=== PATIENT | male | born 1990 | race Caucasian/White ===

== ENCOUNTER → 2016-09-18 | Outpatient (CLI) | payer OTHER ==
[~2016-09-18] MED LIST: BUPIVACAINE HCL 0.25% 30 ML VIAL As Ordered ONE; ISOVUE-M 300 61% 15ML VIAL (Q9967) As Ordered ONE; LIDOCAINE 1% SDV INJ 30 ML VIAL As Ordered ONE; TRIAMCINOLONE ACETONIDE SUSP 40 MG/ML VIAL (J3301) As Ordered ONE; diazePAM 5 MG TAB As Ordered ONE; oxyCODONE 5MG TAB As Ordered ONE
--- NOTE | 2016-09-18 13:11 | REP ---
Chest two views HISTORY: Pneumothorax Comparison: None The lungs are clear. The heart is normal in size. The pulmonary vasculature is normal in appearance. The bony structure is intact. IMPRESSION: No acute disease. Signed by Amos Garcia MD 09/18/2016 01:04 P
--- NOTE | 2016-09-18 15:02 | REP ---
Partial thoracic spine series: Three views. History: Bilateral thoracic facet injections for pain. 16 seconds of fluoroscopy time is reported. Findings: A sequence of three fluoroscopically obtained intraprocedural spot radiographs of the lower thoracic spine document needle position and contrast injection for injection procedure. Signed by Kenji Valentin MD 09/18/2016 03:10 P
--- NOTE | 2016-09-25 00:01 | ECWPNPC ---
PATIENT NAME: CARIDAD ALFARO : 1990 GENDER: MALE VISIT DATE: 09/18/2016 DISCHARGE DATE: 09/18/16 1337 VISIT LOCKED DATE TIME: PHYSICIAN: CHRISTIN EMANUEL RESOURCE: CHRISTIN EMANUEL REASON FOR APPOINTMENT 1. THORACIC FACET CURRENT MEDICATIONS TAKING TRAMADOL HCL 50 MG TABLET 1 TABLET NEEDED ORALLY EVERY 6 HRS PRN MDD4, NOTES: 09-16-16 DISCONTINUED SOMA 350 MG TABLET 1 TABLET NEEDED ORALLY 1 PO AT HS PRN PAIN MDD1, NOTES: 08/11/16 DISCONTINUED TIZANIDINE HCL 4 MG TABLET 1 TAB ORALLY 3 TIMES A DAY NEEDED, NOTES: 08/10/16 DISCONTINUED CELEBREX 200 MG CAPSULE 1 CAPSULE ORALLY ONCE A DAY FOR PAIN, NOTES: NONE LATELY DISCONTINUED SKELAXIN 800 MG TABLET 1 TABLET ORALLY BEFORE BEDTIME FOR SPASMS AND PAIN MEDICATION LIST REVIEWED AND RECONCILED WITH THE PATIENT PAST MEDICAL HISTORY LEFT EYE CORNEAL FOREIGN BODY HOT SPARK INJURY 2013 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 VITAL SIGNS WT 235 LBS, HT 74", BMI 30.17 INDEX, BP 147/83 MM HG, HR 82 /MIN, RR 16 /MIN, TEMP 96.9 F, OXYGEN SAT % 99, NA INITIALS TL 1019, REVIEWED BY: CM. ASSESSMENTS SPONDYLOSIS WITHOUT MYELOPATHY OR RADICULOPATHY, THORACIC REGION - M47.814 (PRIMARY) PROCEDURES PN THORACIC FACET BLOCK THERAPEUTIC PRE PROCEDURE DIAGNOSIS THORACIC SPONDYLOSIS , THORACIC FACET ARTHROPATHY POST PROCEDURE DIAGNOSIS THORACIC SPONDYLOSIS, THORACIC FACET ARTHROPATHY PROCEDURE BILATERAL T8-T9, AND BILATERAL T9-T10 FACET BLOCK THERAPEUTIC SURGEON DR. CHRISTIN EMANUEL PROCESSING TECHNOLOGIST NONE ANESTHESIA LOCAL PRE PROCEDURE NOTE THE PATIENT WITH HISTORY OF CHRONIC THORACIC PAIN. I EVALUATED THE PATIENT AND REVIEWED THE CHART. I WENT OVER THE RISKS, ALTERNATIVES, AND BENEFITS ASSOCIATED WITH THIS PROCEDURE. THE PATIENT WOULD LIKE TO PROCEED AND GAVE CONSENT TO PERFORM THE PROCEDURE. THE PATIENT DENIES UNEXPLAINABLE WEIGHT LOSS, FEVER, CHILLS, OR NEW CHANGES IN URINARY OR BOWEL CONTROL. DESCRIPTION OF PROCEDURE THE PATIENT WAS BROUGHT TO THE PROCEDURE ROOM AND PLACED IN THE PRONE POSITION. THE THORACIC AREA WAS CLEANED WITH CHLORAPREP SOLUTION AND DRAPED ASEPTICALLY. THE PROCEDURE WAS DONE UNDER STERILE CONDITIONS. I CHECKED LATERALITY AND THE LEVEL WHERE THE PROCEDURE WAS GOING TO BE PERFORMED WITH THE PATIENT AND THE SUPPORTING STAFF AT THE MOMENT OF THE TIME OUT IN THE PROCEDURE ROOM. UNDER FLUOROSCOPIC GUIDANCE, THE TARGET POINT WAS SELECTED AT THE RIGHT AND LEFT T8-T9 AND RIGHT AND LEFT T9-T10 THORACIC FACET. TARGET POINT WAS SELECTED AFTER LATERAL ROTATION AND TILT OF THE MAGNIFIER OF THE C-ARM. LIDOCAINE 0.5% WAS USED TO NUMB THE SKIN AND THE SUBCUTANEOUS TISSUE BELOW IT. SPINAL NEEDLES, 22-GAUGE, WERE ADVANCED UNDER FLUOROSCOPIC GUIDANCE AND FOLLOWING PATIENT FEEDBACK UNTIL THE TARGETS WERE TOUCHED. THE POSITION OF THE NEEDLES WAS VERIFIED WITH MULTIPLE X-RAY VIEWS. AFTER PROPER POSITION OF THE NEEDLES WAS ACHIEVED, ISOVUE-M DYE 30% 0.1 ML WAS INJECTED SHOWING ADEQUATE SPREAD OF THE DYE. THEN A SOLUTION OF 0.9 ML OF BUPIVACAINE 0.125% OF KENALOG 10 MG WAS INJECTED AT EACH SITE. THERE WAS NO EVIDENCE OF BLOOD, PARESTHESIA OR CEREBROSPINAL FLUID DURING THE PROCEDURE. THE PATIENT WAS SENT TO THE RECOVERY ROOM. THE PATIENT WAS MOVING THE EXTREMITIES AND DOING WELL. THERE WAS NO COMPLICATION DURING THE PROCEDURE. FLUOROSCOPY TIME WAS 16 SECONDS POST PROCEDURE NOTE THE PATIENT WILL BE SEEN IN A FOLLOW UP IN THE NEXT FEW WEEKS. INSTRUCTIONS WERE GIVEN, QUESTIONS WERE ANSWERED, AND THE PATIENT EXPRESSED UNDERSTANDING AND AGREED WITH THE PLAN. INSTRUCTIONS WERE GIVEN, QUESTIONS WERE ANSWERED, PATIENT REPORTS UNDERSTANDING AND AGREES WITH THE PLAN. I, KACI DELUCA, DOCUMENTED THE ABOVE INFORMATION ACTING A SCRIBE FOR DR. EMANUEL. I HAVE REVIEWED THE ABOVE DOCUMENT, WRITTEN BY KACI DELUCA SCRIBE AND I VERIFY THAT IT IS ACCURATE. PROCEDURE CODES 81611 INJ PARAVERT F JNT C/T 1 LEV 92784 INJ PARAVERT F JNT C/T 2 LEV 6045F RADXPS IN END [id number] PXD FOLLOW UP 3 WEEKS ELECTRONICALLY SIGNED BY CHRISTIN EMANUEL MD ON 09/24/2016 AT 09:40 PM EST DISCLAIMER : THIS IS A VISIT SUMMARY EXTRACTED FROM THE [employer] CHART. IT IS NOT A COPY OF THE [employer] PROGRESS NOTE. MTDD
== END ==
LOC: M PAIN 10:50
PROVIDERS: ATTEND Anesthesiology
DX: G89.29 Other chronic pain (principal); M47.814 Spondylosis without myelopathy or radiculopathy, thoracic region; M51.85 Other intervertebral disc disorders, thoracolumbar region; M51.87 Other intervertebral disc disorders, lumbosacral region; M51.86 Other intervertebral disc disorders, lumbar region; Z79.891 Long term (current) use of opiate analgesic; Z79.899 Other long term (current) drug therapy
CPT/HCPCS: 64490; 64491; 71020; J3301; Q9967

== ENCOUNTER → 2016-10-14 | Outpatient (CLI) | payer OTHER ==
--- NOTE | 2016-10-23 00:26 | ECWPNPC ---
PATIENT NAME: CARIDAD ALFARO : 1990 GENDER: MALE VISIT DATE: 10/14/2016 DISCHARGE DATE: 10/14/16 1110 VISIT LOCKED DATE TIME: PHYSICIAN: ESTHELA GOMEZ RESOURCE: ESTHELA GOMEZ REASON FOR APPOINTMENT 1. POST PROCEDURE HISTORY OF PRESENT ILLNESS HISTORY OF PRESENT ILLNESS: HERE FOR POST PROC. F/U.HAD BILAT. T8/9-T9/10 THERAPEUTIC FACET BLOCK ON 09-18-16.REPORTS NO IMPROVEMENT POST PROCEDURE.RATING PAIN VAS 8/10.DESCRIBES PAIN CONSTANT SHARP AND ACHING.PAIN IS AGGREVATED BY LIFTING OR USE OF ARMS. PAIN THE PATIENT DESCRIBES THE PAIN... FALL RISK SCREENING: SCREENING :NO FALLS IN THE PAST YEAR CURRENT MEDICATIONS TAKING AMITRIPTYLINE HCL 25 MG TABLET 1 TABLET ORALLY ONCE A DAY NOT-TAKING TRAMADOL HCL 50 MG TABLET 1 TABLET NEEDED ORALLY EVERY 6 HRS PRN MDD4, NOTES: 5 DAYS AGO MEDICATION LIST REVIEWED AND RECONCILED WITH THE PATIENT PAST MEDICAL HISTORY LEFT EYE CORNEAL FOREIGN BODY HOT SPARK INJURY 2013 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 SOCIAL HISTORY GENERAL: TOBACCO USE ARE YOU A:NONSMOKER LEARNING BARRIERS / SPECIAL NEEDS ORIENTED TO PLAN OF CARE: PATIENT, PAIN MANAGEMENT PATIENT, ORIENTED TO PLAN OF CARE: PATIENT, PAIN MANAGEMENT PATIENT. NEW PATIENT PAIN DIARY TODAY'S VISITNOTES FROM 0-10, WHAT LEVEL IS YOUR PAIN TODAY?0 PAIN CLINIC PFS, CLERGY, PUBLIC HEALTH REFERRALS PFS REFERRAL NEEDED?NO CLERGY REFERRAL NEEDED?NO PUBLIC HEALTH REFERRAL NEEDED?NO WAS THE PROVIDER NOTIFIED OF ANY PERTINENT INFO?NO PFS REFERRAL NEEDED?NO CLERGY REFERRAL NEEDED?NO PUBLIC HEALTH REFERRAL NEEDED?NO WAS THE PROVIDER NOTIFIED OF ANY PERTINENT INFO?NO REVIEW OF SYSTEMS CONSTITUTIONAL: ANY CHANGE IN YOUR MEDICAL CONDITION? YES, TROUBLE SLEEPING AND INCREASED ANXIETY . CHILLS NO . FEVER NO . INFECTION: DO YOU HAVE NEW INFECTIONS? NO . DO YOU HAVE HISTORY OF MRSA? NO . MUSCULOSKELETAL: ANY NEW PATTERNS OF PAIN OR NUMBNESS? NO . GASTROENTEROLOGY: ANY NEW CHANGE IN BOWEL CONTROL? NO . GENITOURINARY: ANY NEW CHANGE IN BLADDER CONTROL? YES, DIFFICULTY URINATING AT TIMES . IS THERE A CHANCE YOU COULD BE ? NO . HEMATOLOGY/LYMPH: DO YOU TAKE ANY BLOOD THINNERS? (FOR EXAMPLE- COUMADIN, PLAVIX, AGGRENOX, PLATEL, PRADAXA, OR XARELTO) NO . WHEN WAS YOUR LAST DOSE? DATE: TIME: . NEUROLOGY: HAVE YOU FALLEN IN THE PAST 6 MONTHS? NO . ANY NEW EXTREMITY NUMBNESS OR WEAKNESS? NO . CARDIOLOGY: DO YOU HAVE A PACEMAKER OR DEFIBRILLATOR? NO . RESPIRATORY: HAVE YOU BEEN SICK IN THE PAST WEEK? NO . FEVER NO . FLU LIKE SYMPTOMS? NO . COUGH NO . INTEGUMENTARY: DO YOU HAVE ANY RASHES OR OPEN SORES? NO . ALLERGIC/IMMUNO: ARE YOU ALLERGIC TO SHELLFISH OR IV DYE? NO . ANY NEW ALLERGIES? NO . PSYCHIATRIC: DO YOU HAVE THOUGHTS OF HURTING YOURSELF OR SOMEONE ELSE? NO . ARE YOU ABUSED, NEGLECTED, OR IN AN UNSAFE ENVIRONMENT? NO . ENDOCRINOLOGY: ARE YOU DIABETIC? NO . OTHER: DO YOU NEED ANY PRESCRIPTIONS? NO . IF YES, PLEASE LIST: ____ . ANY NEW PROBLEMS WITH YOUR MEDICATIONS? NO . WHEN DID YOU LAST EAT? ____ . WHEN DID YOU LAST DRINK? ____ . WHAT DID YOU LAST DRINK? ____ . NAME OF PERSON DRIVING YOU HOME? ____ . DO YOU HAVE ANY OTHER QUESTIONS OR CONCERNS NO . REVIEWED BY: PROVIDER: ESTHELA ASHBY . VITAL SIGNS WT 235 LBS, HT 74", BMI 30.17 INDEX, BP 149/92 MM HG, HR 95 /MIN, RR 18 /MIN, TEMP 99.7 F, OXYGEN SAT % 98%, REVIEWED BY: CS. EXAMINATION THORACIC SPINE/UPPER BACK: VERTEBRAL SPINE TENDERNESS:MILD PAIN WITH PALPATION LOWER THORACIC SPINE. PARASPINAL MUSCLE SPASM:ABSENT BILATERALLY. RANGE OF MOTION OF SPINES:FULL WITH REPORTS OF INCREASE IN PAIN WITH FLEXION >THAN 90DEGREES AND WITH EXTENSION >45. MUSCLE STRENGTH AND TONE BILAT. UPPER AND LOWER EXT. 5/5 DIAGNOSTIC:REVIEWED MRI THORACIC SPINE-FEBRUARY 2016-POSTERIOR ANNULAR FISSURE T9-10 W SMALL RIGHT DISC PROTRUSION. ASSESSMENTS INTERVERTEBRAL DISC DISORDERS WITH RADICULOPATHY, THORACIC REGION - M51.14 (PRIMARY) TREATMENT INTERVERTEBRAL DISC DISORDERS WITH RADICULOPATHY, THORACIC REGION CONTINUE AMITRIPTYLINE HCL TABLET, 25 MG, 1 TABLET, ORALLY, ONCE A DAY REFILL TRAMADOL HCL TABLET, 50 MG, 1 TABLET NEEDED, ORALLY, EVERY 6 HRS PRN MDD4, 30 DAY(S), 60, REFILLS 0, NOTES: 5 DAYS AGO START CELEBREX CAPSULE, 200 MG, 1 CAPSULE, ORALLY, ONCE A DAY, 30 DAY(S), 30, REFILLS 2 [facility] RE[facility]ON:PERSISTENT THORACIC PAIN/T9-ANNULAR FISSURE/NO IMPROVEMENT W THORACIC EPDURAL/TPI/OR THORACIC FACET PROCEDURE CODES FA211 ESTABILISHED PATIENT [facility] FACILITY CHARGE DISPOSITION & COMMUNICATION FOLLOW UP 6 WEEKS ELECTRONICALLY SIGNED BY SYMONE SIDDIQI ON 10/22/2016 AT 07:12 PM EST DISCLAIMER : THIS IS A VISIT SUMMARY EXTRACTED FROM THE [employer] CHART. IT IS NOT A COPY OF THE [employer] PROGRESS NOTE. GREGOR
== END ==
LOC: M PAIN 10:40
PROVIDERS: ATTEND Nurse Practitioner Family
DX: M51.14 Intervertebral disc disorders with radiculopathy, thoracic region (principal); Z79.899 Other long term (current) drug therapy

== ENCOUNTER → 2016-11-26 | Outpatient (CLI) | payer OTHER ==
--- NOTE | 2016-11-27 01:30 | ECWPNPC ---
PATIENT NAME: CARIDAD ALFARO : 1990 GENDER: MALE VISIT DATE: 11/26/2016 DISCHARGE DATE: 11/26/16 1059 VISIT LOCKED DATE TIME: PHYSICIAN: ESTHELA GOMEZ RESOURCE: ESTHELA GOMEZ REASON FOR APPOINTMENT 1. BACK HISTORY OF PRESENT ILLNESS HISTORY OF PRESENT ILLNESS: HERE FOR F/U.HAD BILAT. T8/9-T9/10 THERAPEUTIC FACET BLOCK ON 09-18-16.REPORTED NO IMPROVEMENT POST PROCEDURE.HAD THORACIC EPIDURAL WITHOUT IMPROVEMENT. RATING PAIN VAS 7/10.DESCRIBES PAIN CONSTANT SHARP AND ACHING.PAIN IS AGGREVATED BY LIFTING OR USE OF ARMS.REPORTING SIDE EFFECT OF HEADACHE AND URINARY RETENTION WITH TRAMADOL.TAKING AMBIEN WITH REPORTS OF IMPROVED SLEEP.CONTINUES WITH CELEBREX .PAIN IS AGGREVATED BY FLEXION,EXTENSION AND TWISTING OF SPINE.PAIN AGGREVATED WITH SITTING.PATIENT IS GOING TO WAIT ON SEEING ORTHPEDIC SURGEON UNTIL MED. BOARD PROCESS COMPLETE. PAIN THE PATIENT DESCRIBES THE PAIN... THE PATIENT DESCRIBES THE PAIN... FALL RISK SCREENING: SCREENING :NO FALLS IN THE PAST YEAR CURRENT MEDICATIONS TAKING TRAMADOL HCL 50 MG TABLET 1 TABLET NEEDED ORALLY EVERY 6 HRS PRN MDD4, NOTES: 5 DAYS AGO TAKING CELEBREX 200 MG CAPSULE 1 CAPSULE ORALLY ONCE A DAY TAKING AMBIEN 5 MG TABLET 1 TABLET AT BEDTIME ORALLY ONCE A DAY NOT-TAKING AMITRIPTYLINE HCL 25 MG TABLET 1 TABLET ORALLY ONCE A DAY MEDICATION LIST REVIEWED AND RECONCILED WITH THE PATIENT PAST MEDICAL HISTORY LEFT EYE CORNEAL FOREIGN BODY HOT SPARK INJURY 2013 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 SURGICAL HISTORY DENIES PAST SURGICAL HISTORY FAMILY HISTORY FATHER: ALIVE 56 YRS, DIAGNOSED WITH HYPERTENSION MOTHER: ALIVE 54 YRS SIBLINGS: ALIVE 1 BROTHER(S) , 1 SISTER(S) - HEALTHY. SOCIAL HISTORY GENERAL: TOBACCO USE ARE YOU A: NONSMOKER , ARE YOU A: NONSMOKER. ALCOHOL SCREENING DID YOU HAVE A DRINK CONTAINING ALCOHOL IN THE PAST YEAR?YES HOW OFTEN DID YOU HAVE A DRINK CONTAINING ALCOHOL IN THE PAST YEAR?MONTHLY OR LESS (1 POINT) HOW MANY DRINKS DID YOU HAVE ON A TYPICAL DAY WHEN YOU WERE DRINKING IN THE PAST YEAR?3 OR 4 (1 POINT) HOW OFTEN DID YOU HAVE SIX OR MORE DRINKS ON ONE OCCASION IN THE PAST YEAR?NEVER (0 POINTS) POINTS2 INTERPRETATIONNEGATIVE RECREATIONAL DRUG USE DRUG USE? NO. CAFFEINE CAFFEINE USE?YES HOW OFTEN AND HOW MUCH? ONCE A MONTH OCCUPATION: . DIET: REGULAR. EXERCISE: DAILY FOR AN HOUR. MARITAL STATUS: . OTHERS AT HOME: SPOUSE. PETS: 2 DOGS,1 CAT ,6 SNAKES. ANGLICAN: NO DRUZE BELIEFS THAT WOULD IMPACT HEALTH CARE, NO DRUZE PREFERENCE. LANGUAGE: BURUNDIAN. EDUCATION: HIGH SCHOOL DIPOLMA. LEARNING BARRIERS / SPECIAL NEEDS BARRIERS TO LEARNING?NO HEARING IMPAIRED?NO VISION IMPAIRED?NO COGNITIVELY IMPAIRED?NO READINESS TO LEARN?NO LEARNING PREFERENCES?NO EMOTIONAL BARRIERS?NO MEDICATION ABUSE NO PSYCHOLOGICAL HX TREATMENTNO PAIN CLINIC PFS, CLERGY, PUBLIC HEALTH REFERRALS PFS REFERRAL NEEDED? NO , PFS REFERRAL NEEDED? NO , CLERGY REFERRAL NEEDED? NO , CLERGY REFERRAL NEEDED? NO , PUBLIC HEALTH REFERRAL NEEDED? NO , PUBLIC HEALTH REFERRAL NEEDED? NO , WAS THE PROVIDER NOTIFIED OF ANY PERTINENT INFO? NO , WAS THE PROVIDER NOTIFIED OF ANY PERTINENT INFO? NO . PATIENT: ____. ADVANCED DIRECTIVES HEALTH CARE PROXY? NO, POWER OF PRIMARY THERAPIST? NO. HOSPITALIZATION/MAJOR DIAGNOSTIC PROCEDURE BROKE BOTH ARMS 2007 REVIEW OF SYSTEMS CONSTITUTIONAL: ANY CHANGE IN YOUR MEDICAL CONDITION? NO . CHILLS NO . FEVER NO . INFECTION: DO YOU HAVE NEW INFECTIONS? NO . DO YOU HAVE HISTORY OF MRSA? NO . MUSCULOSKELETAL: ANY NEW PATTERNS OF PAIN OR NUMBNESS? NO . GASTROENTEROLOGY: ANY NEW CHANGE IN BOWEL CONTROL? NO . GENITOURINARY: ANY NEW CHANGE IN BLADDER CONTROL? YES, INTERMITTENT DIFFICULTY STARTING TO URINATE FOR PAST MONTH . IS THERE A CHANCE YOU COULD BE ? NO . HEMATOLOGY/LYMPH: DO YOU TAKE ANY BLOOD THINNERS? (FOR EXAMPLE- COUMADIN, PLAVIX, AGGRENOX, PLATEL, PRADAXA, OR XARELTO) NO . WHEN WAS YOUR LAST DOSE? DATE: TIME: . NEUROLOGY: HAVE YOU FALLEN IN THE PAST 6 MONTHS? NO . ANY NEW EXTREMITY NUMBNESS OR WEAKNESS? NO . CARDIOLOGY: DO YOU HAVE A PACEMAKER OR DEFIBRILLATOR? NO . RESPIRATORY: HAVE YOU BEEN SICK IN THE PAST WEEK? NO . FEVER NO . FLU LIKE SYMPTOMS? NO . COUGH NO . INTEGUMENTARY: DO YOU HAVE ANY RASHES OR OPEN SORES? NO . ALLERGIC/IMMUNO: ARE YOU ALLERGIC TO SHELLFISH OR IV DYE? NO . ANY NEW ALLERGIES? NO . PSYCHIATRIC: DO YOU HAVE THOUGHTS OF HURTING YOURSELF OR SOMEONE ELSE? NO . ARE YOU ABUSED, NEGLECTED, OR IN AN UNSAFE ENVIRONMENT? NO . ENDOCRINOLOGY: ARE YOU DIABETIC? NO . OTHER: DO YOU NEED ANY PRESCRIPTIONS? NO . IF YES, PLEASE LIST: ____ . ANY NEW PROBLEMS WITH YOUR MEDICATIONS? NO . WHEN DID YOU LAST EAT? ____ . WHEN DID YOU LAST DRINK? ____ . WHAT DID YOU LAST DRINK? ____ . NAME OF PERSON DRIVING YOU HOME? ____ . DO YOU HAVE ANY OTHER QUESTIONS OR CONCERNS NO . REVIEWED BY: PROVIDER: ESTHELA ASHBY . VITAL SIGNS WT 243.6 LBS, HT 74", BMI 31.27 INDEX, BP 160/88 MM HG, HR 91 /MIN, RR 18 /MIN, TEMP 98.5 F, OXYGEN SAT % 98%, NA INITIALS SC 10:08, REVIEWED BY: FRED. EXAMINATION THORACIC SPINE/UPPER BACK: VERTEBRAL SPINE TENDERNESS:MILD PAIN WITH PALPATION LOWER THORACIC SPINE. PARASPINAL MUSCLE SPASM:ABSENT BILATERALLY. RANGE OF MOTION OF SPINES:FULL WITH REPORTS OF INCREASE IN PAIN WITH FLEXION >THAN 90DEGREES AND WITH EXTENSION >45. MUSCLE STRENGTH AND TONE BILAT. UPPER AND LOWER EXT. 5/5 DIAGNOSTIC:REVIEWED MRI THORACIC SPINE-FEBRUARY 2016-POSTERIOR ANNULAR FISSURE T9-10 W SMALL RIGHT DISC PROTRUSION. ASSESSMENTS INTERVERTEBRAL DISC DISORDERS WITH RADICULOPATHY, THORACIC REGION - M51.14 (PRIMARY) MYALGIA - M79.1 TREATMENT INTERVERTEBRAL DISC DISORDERS WITH RADICULOPATHY, THORACIC REGION STOP TRAMADOL HCL TABLET, 50 MG, 1 TABLET NEEDED, ORALLY, EVERY 6 HRS PRN MDD4, NOTES: 5 DAYS AGO CONTINUE CELEBREX CAPSULE, 200 MG, 1 CAPSULE, ORALLY, ONCE A DAY NOTES: TRAMADOL FORMALLY WASTED PER CLINIC POLICY. PROCEDURE CODES FA211 ESTABILISHED PATIENT [facility] FACILITY CHARGE DISPOSITION & COMMUNICATION FOLLOW UP DISCHARGE TO [facility] ELECTRONICALLY SIGNED BY SYMONE SIDDIQI ON 11/26/2016 AT 03:53 PM EDT DISCLAIMER : THIS IS A VISIT SUMMARY EXTRACTED FROM THE [employer] CHART. IT IS NOT A COPY OF THE [facility] PROGRESS NOTE. MTDD
== END ==
LOC: M PAIN 10:20
PROVIDERS: ATTEND Nurse Practitioner Family
DX: Z09 Encounter for follow-up examination after completed treatment for conditions other than malignant neoplasm (principal); G89.29 Other chronic pain; M51.14 Intervertebral disc disorders with radiculopathy, thoracic region; M79.1 Myalgia; Z79.899 Other long term (current) drug therapy